=== PATIENT | female | born 1990 | race Caucasian/White ===

== ENCOUNTER 2021-11-25 06:12 | Emergency (ER) | payer OTHER ==
[~2021-11-25] VITALS: Ht 170.2 cm; Wt 86.4 kg
[2021-11-25 06:19] VITALS: BP 122/75
[2021-11-25] MEDS ORDERED: TOPUD PO (07:24)
[2021-11-25] MEDS ORDERED: CEPH500T PO (07:24)
== END 2021-11-25 07:47 | disposition home or self-care (01) ==
LOC: ER 06:12
DX: L03.113 Cellulitis of right upper limb (principal)
CPT/HCPCS: 76604; 99284

== ENCOUNTER 2023-09-19 22:03 | Emergency (ER) | payer MEDICAID, OTHER ==
[~2023-09-19] VITALS: Ht 167.6 cm; Wt 65.0 kg
[~2023-09-19 22:03] MED LIST: CEPH500T PO; TOPUD PO
[2023-09-19 22:56] VITALS: BP 116/73; PULSE 76; RESP 18; TEMP 98.1; O2SAT 100
== END 2023-09-20 01:11 | disposition home or self-care (01) ==
LOC: ER 22:03
DX: S50.11XA Contusion of right forearm, initial encounter (principal); W13.9XXA Fall from, out of or through building, not otherwise specified, initial encounter; Y93.89 Activity, other specified; Y92.89 Other specified places as the place of occurrence of the external cause; Y99.8 Other external cause status
CPT/HCPCS: 73110; 99283

== ENCOUNTER 2024-08-20 16:26 | Emergency (ER) | payer OTHER ==
[~2024-08-20] VITALS: Ht 170.2 cm; Wt 74.0 kg
[2024-08-20 16:29] VITALS: O2SAT 98
[2024-08-20 16:33] VITALS: BP 157/79; PULSE 96; RESP 16; TEMP 36.9; O2SAT 100
[2024-08-20 17:00] LABS: CLARITY URINE CLEAR (CLEAR); COLOR URINE YELLOW (YELLOW); GLUCOSE URINE NEGATIVE (NEGATIVE); KETONES URINE NEGATIVE (NEGATIVE); LEUKOCYTE ESTERASE URINE NEGATIVE (NEGATIVE); NITRITE URINE NEGATIVE (NEGATIVE); OCCULT BLOOD URINE 2+ (NEGATIVE); PH URINE 5.5 (4.5-8.0); PROTEIN URINE NEGATIVE (NEGATIVE); SPECIFIC GRAVITY URINE 1.026 (1.005-1.030); UROBILINOGEN URINE 0.2 E.U./dL (0.2-1.0)
[2024-08-20 17:21] LABS: BACTERIA URINE 1+; RBC URINE 0-2 /hpf (0-2); SQUAMOUS EPITHELIAL CELL URINE 1+ /lpf (RARE/1+); WBC URINE 0-2 /hpf (0-2)
== END 2024-08-20 22:21 | disposition left against medical advice (07) ==
LOC: ER 16:26
DX: T23.102A Burn of first degree of left hand, unspecified site, initial encounter (principal); M25.472 Effusion, left ankle; Z88.5 Allergy status to narcotic agent; X08.8XXA Exposure to other specified smoke, fire and flames, initial encounter; Y93.89 Activity, other specified; Y92.89 Other specified places as the place of occurrence of the external cause; Y99.8 Other external cause status
CPT/HCPCS: 73620; 81003; 81025; 99284